=== PATIENT | male | born 1955 | race Caucasian/White ===

== ENCOUNTER 2017-06-26 16:15 | Emergency (ER) | payer MEDICARE ==
[~2017-06-26] VITALS: Ht 167.6 cm; Wt 81.8 kg
[~2017-06-26 16:15] MED LIST: CALC1TAB84 PO; DOCU250C91 PO; GABA300C PO; Ibuprofen PO; MULT-1239 PO; PANT40TA25 PO; Phenazopyridine Hcl PO; SENS PO
[2017-06-26] MEDS ORDERED: TRAM50TA4 PO (16:27)
[2017-06-26] MEDS ORDERED: HYDR-3705 PO (16:27)
[2017-06-26] MEDS ORDERED: BACITRACIN 0.9 GM PACKET OINTMENT TP ONE (17:00)
[2017-06-26] MEDS ORDERED: PERTUSS(ACELL),DIPH,TET VAC/PF 0.5 ML VIAL IM ONE (17:00)
[2017-06-26] MEDS ORDERED: LIDOCAINE HCL 1% 20 ML VIAL INJ ONE (17:00)
[2017-06-26] MEDS ORDERED: POVIDONE-IODINE 10% 15 ML SOLUTION UD TP ONE (17:00)
[2017-06-26 17:33] VITALS: BP 121/67
== END 2017-06-26 18:22 | disposition home or self-care (01) ==
LOC: EMS 16:16
DX: S01.312A Laceration without foreign body of left ear, initial encounter (principal); G89.29 Other chronic pain; M54.5 Low back pain; Y04.2XXA Assault by strike against or bumped into by another person, initial encounter; Y93.89 Activity, other specified; Y92.89 Other specified places as the place of occurrence of the external cause; Y99.8 Other external cause status; Z85.46 Personal history of malignant neoplasm of prostate
CPT/HCPCS: 12013; 90471; 90715; 99283; J3490